=== PATIENT | male | born 1990 | race Caucasian/White ===

== ENCOUNTER 2017-02-25 15:50 | Emergency (ER) | payer OTHER ==
[~2017-02-25] VITALS: Ht 180.3 cm; Wt 241.0 kg
[2017-02-25 23:29] VITALS: BP 159/92
== END 2017-02-26 02:30 | disposition home or self-care (01) ==
LOC: ER 02-26 00:50
DX: M25.571 Pain in right ankle and joints of right foot (principal); W50.2XXA Accidental twist by another person, initial encounter; Y93.89 Activity, other specified; Y92.89 Other specified places as the place of occurrence of the external cause; Y99.8 Other external cause status
CPT/HCPCS: 73610; 73630; 99284; Z7610